=== PATIENT | male | born 1995 | race Caucasian/White ===

== ENCOUNTER 2021-11-12 21:00 | Emergency (ER) | payer OTHER, SELFPAY ==
--- NOTE | ~2021-11-12 | XR_ITS ---
EXAM: XR ankle RT min 3V DATE: 11/12/2021 21:18 HISTORY: PAIN S/P TWISTING IT ON STEP, LATERAL SWELLING . COMPARISON: None available. FINDINGS: Normal mineralization. No fracture or dislocation. No lytic or blastic lesion. Joint space s are maintained. No erosion or periosteal change. Lateral soft tissue swelling. IMPRESSION: No acute osseous finding in the right ankle. Reviewed, dictated and finalized at location K.
[2021-11-12 21:04] VITALS: BP 128/71; PULSE 77; RESP 16; TEMP 36.2; O2SAT 100
--- NOTE | 2021-11-12 21:29 | ED.LOWEXIN ---
HPI - Extremity Injury (Lower) General Chief Complaint: Extremity Injury, Lower Stated Complaint: Right ankle pain Time Seen by Provider: 11/12/21 21:09 History of Present Illness HPI Narrative: Patient is a 26-year-old male who presents ER with pain to the right ankle. Was walking into his garage going down a step when he twisted his ankle. [place] a pop. Has swelling. Has pain with ambulating. No numbness or tingling. Able to plantarflex and dorsiflex without issue. No other injuries. Related Data Allergies Allergy/AdvReac Type Severity Reaction Status Date / Time No Known Allergies Allergy Verified 11/12/21 21:06 Review of Systems Musculoskeletal: Musculoskeletal: Reports arthralgias, Reports joint swelling and Denies muscle cramps Neurologic: Denies syncope, Denies focal weakness and Denies numbness PMFSH Past Medical History Medical History (Updated 11/12/21 @ 21:33 by Yoel Bocanegra MD) Healthy adult male Surgical History Surgical History (Updated 11/12/21 @ 21:31 by Yoel Bocanegra MD) History of thumb surgery Social History Social History (Updated 11/12/21 @ 21:31 by Yoel Bocanegra MD) Smoking status: Never smoker Exam Narrative: GENERAL: Well-appearing, well-nourished, and in no acute distress. HEAD: Normocephalic, atraumatic. HEART: Regular rate and rhythm. Normal peripheral pulses. EXTREMITIES: Right ankle exam with swelling over the lateral malleolus and tenderness over the lateral malleolus with normal range of motion and strength. Dorsalis pedis and posterior tibial pulses intact. Normal sensation. SKIN: Warm, dry, no rash. NEURO: No focal deficits. Alert and oriented x3. PSYCH: Normal mood and affect. Course Course Emergency Course: Patient has a stirrup splint that he can wear at home. Will provide crutches. Rest, ice, compression, elevation as well as anti-inflammatories for home. Vital Signs Vital signs: Vital Signs Temperature 97.1 F L 11/12/21 21:04 Pulse Rate 77 11/12/21 21:04 Respiratory Rate 16 11/12/21 21:04 Blood Pressure 128/71 11/12/21 21:04 Pulse Oximetry 100 11/12/21 21:04 Temperature 97.1 F L 11/12/21 21:04 Pulse Rate 77 11/12/21 21:04 Respiratory Rate 16 11/12/21 21:04 Blood Pressure 128/71 11/12/21 21:04 Pulse Oximetry 100 11/12/21 21:04 MDM - Extremity Injury (Lower) Imaging Data Radiologist's impression: ITS Impressions Ankle X-Ray 11/12/21 21:26 IMPRESSION: No acute osseous finding in the right ankle. Discharge Plan Discharge Clinical Impression: Ankle sprain Patient Disposition: Home, Self-Care Condition: Stable Instructions: Ankle Sprain (ED), Crutch Instructions (ED) Additional Instructions: Return the ER if you suffer new injury, you have chest pain or shortness of breath, you cannot keep down food or water, you have additional concerns. Prescriptions: New ibuprofen 600 mg tablet 600 mg PO TID Qty: 14 0RF Follow-up/Referrals: PHYSICIAN NOT ON STAFF,NONSTAFF [Primary Care Provider] - 1 Week
== END 2021-11-12 21:54 | disposition home or self-care (01) ==
PROVIDERS: Emergency Provider Emergency Medicine
DX: S93.401A Sprain of unspecified ligament of right ankle, initial encounter (principal); X50.9XXA Other and unspecified overexertion or strenuous movements or postures, initial encounter
CPT/HCPCS: 73610; 99283

== ENCOUNTER 2024-11-08 17:50 | Emergency (ER) | payer OTHER, SELFPAY ==
--- NOTE | ~2024-11-08 | XR_ITS ---
EXAM: XR finger 1st LT min 2V DATE: 11/08/2024 20:09 HISTORY: Laceration, Tip of thumb . COMPARISON: None available. FINDINGS: Normal mineralization. No fracture or dislocation. No lytic or blastic lesion. Joint space s are maintained. No erosion or periosteal change. Soft tissues within normal limits. IMPRESSION: No acute osseous finding in the left thumb. No radiopaque foreign body. Reviewed, dictated and finalized at location K. IMPRESSION: No acute osseous finding in the left thumb. No radiopaque foreign b amber.
--- OUTSIDE RECORDS SUMMARY | 2024-11-08 17:52 | XMS_ITS | Encounter Summary ---
Author Organization [facility] Address [address] [place] [address] Phone Care Team Providers Care Meat Selector Name Role Phone No, Physician Primary Care Provider [phone] Myla Gaytan NP Primary Care Provider Reason for Visit * Reason Onset Date Comments Insurance Referrals 03/25/2019 SPOKE W/ W/C FORENSICS TEAM DIRECTOR WHO STATED SHE COULD ONLY GIVE VERBAL AND TO FAX OVER RX. I FAXED RX AND WAITING ON W/C AUTH IN WRITING. Encounter Details Date Type Department Care Team (Late st Contact Info) Description 03/25/2019 Telephone [facility] Occupational Therapy [address] [place] [address] Medina Michaels Insurance Referrals (SPOKE W/ W/C FORENSICS TEAM DIRECTOR WHO STATED SHE COULD ONLY GIVE VERBAL AND TO FAX OVER RX. I FAXED RX AND WAITING ON W/C AUTH IN WRITING.) Social History Tobacco Use Types Packs/Day Years Used Date Smoking Tobacco: Never Smokeless Tobacco: Never Alcohol Use Standard Drinks/Week Comments Yes 0 (1 standard drink = 0.6 oz pur e alcohol) rare Sex and Gender Information Value Date Recorded Sex Assigned at Not on file Legal Sex Male 8:34 AM INFANT CAREGIVER Gender Identity Male 05/27/2024 1:59 PM INFANT CAREGIVER Sexual Orientation Straight 05/27/2024 1: 59 PM INFANT CAREGIVER documented as of this encounter Plan of Treatment Not on file documented as of this encounter Visit Diagnoses Not on filedocumented in this encounter Care Teams Meat Selector Relationship Specialty Start Date End Date No, Physician PCP - General 02/07/19 01/18/24 Myla Gaytan NP [address] [address] PCP - General Family Medicine 01/19/24 documented as of this encounter
--- OUTSIDE RECORDS SUMMARY | 2024-11-08 17:52 | XMS_ITS | Encounter Summary ---
Author Organization [facility] Address [address] [place] [address] Phone Care Team Providers Care Lip Of Shank Cutter Name Role Phone No, Physician Primary Care Provider [phone] Myla Gaytan NP Primary Care Provider [phone] Reason for Visit * Reason Onset Date Comments Insurance Referrals 03/22/2019 LVM FOR W/C SUPERVISOR ENGRAVING TO EMAIL/FAX AUTH FOR PATIENT UPCOMING VST. Encounter Details Date Type Department Care Team (Late st Contact Info) Description 03/22/2019 Telephone [facility] Occupational Therapy [id number] [place] [address] 1[address] [place] [address] Medina Michaels Insurance Referrals (LVM FOR W/C SUPERVISOR ENGRAVING TO EMAIL/FAX AUTH FOR PATIENT UPCOMING VST.) Social History Tobacco Use Types Packs/Day Years Used Date Smoking Tobacco: Never Smokeless Tobacco: Never Alcohol Use Standard Drinks/Week Comments Yes 0 (1 standard drink = 0.6 oz pur e alcohol) rare Sex and Gender Information Value Date Recorded Sex Assigned at Not on file Legal Sex Male 8:34 AM PATIENT SUPPORT ASSISTANT Gender Identity Male 05/27/2024 1:59 PM PATIENT SUPPORT ASSISTANT Sexual Orientation Straight 05/27/2024 1: 59 PM PATIENT SUPPORT ASSISTANT documented as of this encounter Plan of Treatment Not on file documented as of this encounter Visit Diagnoses Not on filedocumented in this encounter Care Teams Lip Of Shank Cutter Relationship Specialty Start Date End Date No, Physician PCP - General 02/07/19 01/18/24 Myla Gaytan NP [address] [facility] [address] [place] [address] PCP - General Family Medicine 01/19/24 documented as of this encounter
--- OUTSIDE RECORDS SUMMARY | 2024-11-08 17:52 | XMS_ITS | Clinical Summary ---
Author Organization [facility] Address [address] [place] [address] Care Team Providers Care Refractive Surgeon Name Role Phone Myla Gaytan NP Primary Care Provider [phone] Allergies No known active allergies Medications No known medications Active Problems Problem Noted Date Diagnosed Date Closed displaced fracture of proximal phalanx of right thumb 02/07/2019 Abnormal glucose level 03/22/2013 Abnormal weight gain 03/22/2013 Closed fracture of distal end of radius 07/24/19 10 Encounters Date Type Department Care Team Description 08/14/2024 Results Follow-Up [facility] Primary Care at [address] [address] Heriberto Rg MD HSV 2 IgG Antibody Blood, HSV 1 IgG Antibody Blood, N. gonorrhoeae/C. trachomatis Amplification Urine, Additional followed-up results: 2 08/11/2024 3:53 PM CDT - 08/11/2024 11:59 PM CDT Hospital Encounter [address] [address] Screen for STD (sexually transmitted disease) Discharge Disposition: Discharge to home or self care 08/11/2024 1:45 PM CDT Lab [facility] Outpatient Lab at [address] [address] Screen for STD (sexually transmitted disease) (Primary Dx) 08/11/2024 1:15 PM CDT Office Visit [facility] Primary Care at [address] [address] Heriberto Rg MD Screen for STD (sexually transmitted disease) (Primary Dx) from Last 3 Months Surgical History Surgery Date Site/Laterality Comments WISDOM TOOTH EXTRACTION THUMB SURGERY Left Medical History Medical History Date Comments ADHD (attention deficit hyperactivity disorder) Family History Medical History Relation Name Comments Breast cancer Father's Sister Diabetes Maternal Grandfather Family history of diabetes mellitus - (Added by TW Conv) Diabetes Maternal Grandmother Family history of diabetes mellitus - (Added by TW Conv) Obesity Mother Family history of obesity - (Added by TW Conv) Relation Name Status Comments Father's Sister Maternal Grandfather Maternal Grandmother Mother Social History Tobacco Use Types Packs/Day Years Used Date Smoking Tobacco: Never Smokeless Tobacco: Never Alcohol Use Standard Drinks/Week Comments Yes 0 (1 standard drink = 0.6 oz pur e alcohol) rare PHQ-2 Answer Date Recorded PHQ-2 Total Score (If total score is 3 or more points, staff should administer the PHQ-9) 0 07/11/2024 Sex and Gender Information Value Date Recorded Sex Assigned at Not on file Legal Sex Male 8:34 AM ORACLE ENGINEER Gender Identity Male 05/27/2024 1:59 PM ORACLE ENGINEER Sexual Orientation Straight 05/27/2024 1: 59 PM ORACLE ENGINEER Obstetrics History Last Filed Vital Signs Vital Sign Reading Time Taken Comments Blood Pressure 110/70 08/11/2024 1:21 PM CDT Pulse 73 08/11/2024 1:21 PM CDT Temperature 36.1 C (96.9 F) 08/11/2024 1:21 PM CDT Respiratory Rate 16 08/11/2024 1:21 PM CDT Oxygen Saturation 98% 08/11/2024 1:21 PM CDT Inhaled Oxygen Concentration - - Weight 124.3 kg (274 lb) 08/11/2024 1:21 PM CDT Height 182.9 cm (6') 08/11/2024 1:21 PM CDT Body Mass Index 37.16 08/11/2024 1:21 PM CDT Plan of Treatment Health Maintenance Due Date Last Done Comments DTaP/Tdap/Td Vaccine (1 - Tdap) 2008 Hepatitis B Screening 2015 Covid-19 Vaccine ( - 2023-2 5 season) 2023 08/03/2020, 07/13/2020 HPV Vaccines (1 - 3-dose SCD M series) 2024 Influenza Vaccine (#1) 2024 Regular Well Visit/Exam 18-64 01/18/2025 01/19/2024 Depression Screening 07/11/2025 07/11/2024, 01/19/2024 Varicella Vaccines (1 of 2 - 13+ 2-dose series) 08/15/2025 Postponed from 04/10 (Patient declined, but will receive in the future) Hepatitis C Screening Completed 01/21/2024 Pneumococcal vaccine <65 Aged Out No longer eligible based on patient's age to complete this topic Medical Devices Implanted Type Area American Studies Professor Device Identifier Shelf Expiration Date Model / Serial / Lot [employer] [id number] Jeferson .045in 9in [place] Both Ends Orthopedic Wire - S00 - [id number] Implanted:Qty: 2 on 02/16/2019 by Shane Elizabeth MD at [facility] Wire Left: Thumb [employer] [id number] / Explanted Type Area American Studies Professor Device Identifier Shelf Expiration Date Model / Serial / Lot [employer] [id number] Jeferson .035in 9in [place] Both Ends Orthopedic Wire - S00 - [id number] Implanted:Qty: 1 Explanted:Qty: 1 on 02/16/2019 at [facility] Wire Left: Thumb [employer] [id number] / Description:Used for provisi onal fixation Procedures Procedure Name Priority Date/Time Associated Diagnosis Comments RPR Routine 08/11/2024 3:53 PM CDT Screen for STD (sexually transmitted disease) HIV 1/2 ANTIBODY PLUS P24 ANTIGEN Routine 08/11/2024 3:53 PM CDT Screen for STD (sexually transmitted disease) N. GONORRHOEAE/C. TRACHOMATIS AMPLIFICATION Routine 08/11/2024 3:53 PM CDT Screen for STD (sexually transmitted disease) HSV 1 ANTIBODY, IGG Routine 08/11/2024 3 :53 PM CDT Screen for STD (sexually transmitted disease) HSV 2 ANTIBODY, IGG Routine 08/11/2024 3 :53 PM CDT Screen for STD (sexually transmitted disease) HEPATITIS C ANTIBODY Routine 01/21/2024 4:00 PM CDT Encounter for hepatitis C screening test for low risk patient from Last 3 Months or Most Recently Relevant to Health Maintenance Results * N. gonorrhoeae/C. trachomatis Amplification Urine (08/11/2024 3:53 PM CDT) C. trachomatis Not Detected [facility] Comment:Testing performed by : [facility], [address] [place] [address]., [id number] N. gonorrhoeae Not Detected [facility] Comment: Interpretive Data This assay detects Chlamydia trachomatis and Neisseria gonorrhoeae by nucleic acid amplification testing (NAAT). This assay has been cleared by the [place] Food and Drug administration. The performance characteristics of this test have been verified by the [facility] Molecular Infectious Disease laboratory. The performance characteristics of this test have not been evaluated in individuals less than 14 years of age. Current Interpretive Data was last revised on 2023. Testing performed by: [facility], [address] [place] [address]., [id number] Urine (None) 08/11/2024 3:53 PM CDT 08/12/2024 10:32 AM CDT us Heriberto Rg MD LAB MICROBIOLOGY - GENERAL ORDERABLES Final Result [facility] [id number] Department [place] [address] [facility] * HIV 1/2 Antibody plus p24 Antigen Blood (08/11/2024 3:53 PM CDT) HIV 1/2 ab + p24 ag Nonreactive Nonreactive Comment: Nonreactive for HIV-1 antigen and HIV-1/HIV-2 antibodies. No laboratory evidence of HIV infection. If acute HIV infection is suspected, consider testing for HIV-1 RNA. Blood 08/11/2024 3:53 PM CDT 08/11/2024 8:46 PM CDT Heriberto Rg MD LAB MICROBIOLOGY - GENERAL ORDERABLES Final Result Performing Organization Address [facility] Co de Phone Number YASMIN [address] [place] [address] * HSV 2 IgG Antibody Blood (08/11/2024 3:53 PM CDT) HSV 2 IgG Nonreactive Nonreactive Comment: Interpretive Data 1. Nonreactive: No detectable IgG antibody to HSV-2. 2. Equivocal: Presence or absence of detectable antibodies to HSV-2 cannot be determined and the test should be repeated. 3. Reactive: Indicates presence of detectable IgG antibody to HSV-2. Current interpretive data was last revised on 2022. Testing performed by: [facility], [address] [place] [address]., [id number] Blood 08/11/2024 3:53 PM CDT 08/12/2024 10:10 AM CDT Heriberto Rg MD LAB MICROBIOLOGY - GENERAL ORDERABLES Final Result Performing Organization Address [facility] de Phone Number [facility] [address] [address] [facility] [place] [address] * HSV 1 IgG Antibody Blood (08/11/2024 3:53 PM CDT) HSV 1 IgG Nonreactive Nonreactive Comment: Interpretive Data 1. Nonreactive: No detectable IgG antibody to HSV-1. 2. Equivocal: Presence or absence of detectable antibodies to HSV-1 cannot be determined and the test should be repeated. 3. Reactive: Indicates presence of detectable IgG antibody to HSV-1. Current interpretive data was last revised on 2016. Testing performed by: [facility], [address] [place] [address], [place]., [address] Blood 08/11/2024 3:53 PM CDT 08/12/2024 10:10 AM CDT Heriberot Rg MD LAB MICROBIOLOGY - GENERAL ORDERABLES Final Result Performing Organization Address [facility] Co de Phone Number [facility] WISDOM [address] [place] [address] * RPR Blood (08/11/2024 3:53 PM CDT) RPR Nonreactive Nonreactive Blood 08/11/2024 3:53 PM CDT 08/11/2024 8:46 PM CDT Heriberto Rg MD LAB MICROBIOLOGY - GENERAL ORDERABLES Final Result Performing Organization Address [facility] de Phone Number [facility] WISDOM [id number] [place] [address] * Hepatitis C antibody Blood (01/21/2024 4:00 PM CDT) Hep C Ab Nonreactive Nonreactive Comment: Interpretive Data Nonreactive: Antibodies to HCV not detected. Does NOT exclude the possibility of recent exposure to HCV. Equivocal: Equivocal for HCV antibodies. Supplemental molecular testing will be automatically performed to determine infection status in accordance with current CDC screening recommendations. Reactive: Positive for HCV antibodies. This may represent current or past HCV infection. Supplemental molecular testing will be automatically performed to determine current infection status in accordance with current CDC screening recommendations. Interpretive data was last revised on 2019. Blood 01/21/2024 4:00 PM CDT 01/21/2024 8:28 PM CDT Result [facility] Myla Gaytan NP LAB MICROBIOLOGY - GENERAL ORDER ALIDA Final Result Performing Organization Address [facility] [place] Number [place] [address] [address] [place] [address] from Last 3 Months or Most Recently Relevant to Health Maintenance Insurance [facility] CHOICE PLUS [facility] HMO/PPO Address: [address] [address] [place] [address] [employer] Advance Directives For more information, please contact: [phone] * Full Code (Latest Code Status on File) Date Activated Date Inactivated Comments 02/16/2019 9:11 AM 02/16/2019 2:08 PM Care Teams Refractive Surgeon Relationship Specialty Start Date End Date Myla Gaytan NP [address] [facility] [address] [place] [address] PCP - General Family Medicine 01/19/24
--- OUTSIDE RECORDS SUMMARY | 2024-11-08 17:52 | XMS_ITS | Referral Summary ---
Author Organization [facility] Address [address] [place] [address] Care Team Providers Care Desktop Engineer Name Role Phone Myla Gaytan NP Primary Care Provider [phone] Encounters Date Type Department Care Team Description 08/14/2024 Results Follow-Up [facility] Primary Care at [address] [address] Heriberto Rg MD HSV 2 IgG Antibody Blood, HSV 1 IgG Antibody Blood, N. gonorrhoeae/C. trachomatis Amplification Urine, Additional followed-up results: 2 08/11/2024 3:53 PM CDT - 08/11/2024 11:59 PM CDT Hospital Encounter [facility] [id number] [place] [id number] Screen for STD (sexually transmitted disease) Discharge Disposition: Discharge to home or self care 08/11/2024 1:45 PM CDT Lab [facility] Outpatient Lab at [address] [address] Screen for STD (sexually transmitted disease) (Primary Dx) 08/11/2024 1:15 PM CDT Office Visit [facility] Primary Care at [address] [address] Heriberto Rg MD Screen for STD (sexually transmitted disease) (Primary Dx) from Last 3 Months Allergies No known active allergies Medications No known medications Active Problems Problem Noted Date Diagnosed Date Closed displaced fracture of proximal phalanx of right thumb 02/07/2019 Abnormal glucose level 03/22/2013 Abnormal weight gain 03/22/2013 Closed fracture of distal end of radius 07/24/19 10 Social History Tobacco Use Types Packs/Day Years [...] on file Legal Sex 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:34 AM VICE INVESTIGATOR Gender Identity Male 05/27/2024 1:59 PM VICE INVESTIGATOR Sexual Orientation Straight 05/27/2024 1: 59 PM VICE INVESTIGATOR Last Filed Vital Signs Vital Sign Reading [...] 08/11/2024 1:21 PM CDT Plan of Treatment Not on file Medical Devices Implanted Type Area Rotor Pilot Device Identifier Shelf Expiration Date Model / Serial / Lot [employer] [id number] Jeferson .045in 9in [place] Both Ends Orthopedic Wire - S00 - [id number] Implanted:Qty: 2 on 02/16/2019 by Shane Elizabeth MD at [facility] Wire Left: Thumb [employer] [id number] / Explanted Type Area Rotor Pilot Device Identifier Shelf Expiration Date Model / Serial / Lot [employer] [id number] Jeferson .035in 9in [place] Both Ends Orthopedic Wire - S00 - [id number] Implanted:Qty: 1 Explanted:Qty: 1 on 02/16/2019 at [facility] Wire Left: Thumb [employer] [id number] / Description:Used for provisi onal fixation Procedures [...] trachomatis Amplification Urine (08/11/2024 3:53 PM CDT) Pathologist [facility] C. trachomatis Not Detected [facility] Comment:Testing performed by : [facility], [address] [place]., [address] N. gonorrhoeae Not Detected Y[facility]MIN WISDOM Comment: Interpretive Data This assay detects Chlamydia trachomatis and Neisseria gonorrhoeae by nucleic acid amplification testing (NAAT). This assay has been cleared by the [place] Food and Drug administration. The performance characteristics of this test have been verified by the [facility] Molecular Infectious Disease laboratory. The performance characteristics of this test have not been evaluated in individuals less than 14 years of age. Current Interpretive Data was last revised on 2023. Testing performed by: [facility], [address] [place]., [address] Urine (None) 08/11/2024 3:53 PM CDT 08/12/2024 10:32 AM CDT Result [facility] Heriberto Rg MD LAB MICROBIOLOGY - GENERAL ORDERABLES Final Result Performing Organization Address [facility] Co de Phone Number [facility] [address] [place] [place] [address] [facility] * HIV 1/2 Antibody plus p24 Antigen Blood (08/11/2024 3:53 PM CDT) HIV 1/2 ab + p24 ag Nonreactive Nonreactive Comment: Nonreactive for HIV-1 antigen and HIV-1/HIV-2 antibodies. No laboratory evidence of HIV infection. If acute HIV infection is suspected, consider testing for HIV-1 RNA. Blood 08/11/2024 3:53 PM CDT 08/11/2024 8:46 PM CDT Result [facility] Heriberto Rg MD LAB MICROBIOLOGY - GENERAL ORDERABLES Final Result Performing Organization Address [facility] Co de Phone Number [facility] [address] [place] [address] * HSV 2 IgG Antibody Blood (08/11/2024 [...] last revised on 2022. Testing performed by: [facility], [address] [facility] [address] Blood 08/11/2024 3:53 PM CDT 08/12/2024 10:10 AM CDT Result [facility] Heriberto Rg MD LAB MICROBIOLOGY - GENERAL ORDERABLES Final Result Performing Organization Address [facility] Co de Phone Number YASMIN WISDOM [address] [address] [place] [address] * HSV 1 IgG Antibody Blood (08/11/2024 [...] last revised on 2016. Testing performed by: [facility], [address] [place] [address]., [address] Blood 08/11/2024 3:53 PM CDT 08/12/2024 10:10 AM CDT Heriberto Rg MD LAB MICROBIOLOGY - GENERAL ORDERABLES Final Result Performing Organization Address [facility] Co de Phone Number YASMIN WISDOM [address] [address] [place] [address] * RPR Blood (08/11/2024 3:53 PM CDT) Pathologist [facility] RPR Nonreactive Nonreactive Blood 08/11/2024 3:53 PM CDT 08/11/2024 8:46 PM CDT Heriberto Rg MD LAB MICROBIOLOGY - GENERAL ORDERABLES Final Result Performing Organization Address [facility] [place] [address] [address] [place] [address] * Hepatitis C antibody Blood (01/21/2024 4:00 [...] 4:00 PM CDT 01/21/2024 8:28 PM CDT us Myla Gaytan NP LAB MICROBIOLOGY - GENERAL ORDER ALIDA Final Result YASMIN [address] Department [place] [address] from Last 3 Months or Most Recently Relevant to Health Maintenance Insurance [facility] CHOICE PLUS [employer] Advance Directives For more information, please contact: [phone] * Full Code (Latest Code Status on File) Date Activated Date Inactivated Comments 02/16/2019 9:11 AM 02/16/2019 2:08 PM Care Teams Desktop Engineer Relationship Specialty Start Date End Date Myla Gaytan NP [address] [facility] [address] [place] [address] PCP - General Family Medicine 01/19/24
[2024-11-08 17:53] VITALS: BP 141/86; PULSE 81; RESP 18; TEMP 36.4; O2SAT 99
--- NOTE | 2024-11-08 18:16 | ED.WOUNDLAC ---
HPI - Wound/Laceration General Chief Complaint: Wound/Laceration <Isatu Hilario PA-C - Last Filed: 11/08/24 18:17> Stated Complaint: L thumb injury <YOGESH Hinson Last Filed: 11/08/24 18:17> Time Seen by Provider: 11/08/24 19:23 <Isatu Hilario PA-C - Last Filed: 11/08/24 18:17> Focused HPI: 29-year-old male presents emergency department for laceration to his left thumb that occurred prior to arrival. Patient states he was cutting an onion when he accidentally cut his finger. Bleeding controlled. Last Tdap unknown. GENERAL: Well-appearing, well-nourished, and in no acute distress. HEAD: Normocephalic, atraumatic. CHEST: Clear to auscultation. ?No respiratory distress. EXT: 0.5 cm laceration to the distal phalanx on the lateral nail fold on the ulnar side of the thumb, bleeding controlled. No nail involvement. No deep structures or foreign bodies visualized. Patient has full active and passive range of motion of finger. Cap refill less than 2. Sensation intact. HEART: Regular rate and rhythm.? NEURO: ?Alert and oriented x3. Patient screened in triage and initial orders placed.? ?Additional care and disposition to be based upon?diagnostic testing and treatment. <Isatu Hilario PA-C - Last Filed: 11/08/24 18:17> Related Data Allergies/Adverse Reactions: Allergies Allergy/AdvReac Type Severity Reaction Status Date / Time No Known Allergies Allergy Verified 11/08/24 17:56 <Isatu Hilario PA-C - Last Filed: 11/08/24 18:17> PMFSH Past Medical History Medical History: Medical History (Updated 11/08/24 @ 20:54 by Rell Mcqueen MD) Healthy adult male <Isatu Hilario PA-C - Last Filed: 11/08/24 18:17> Surgical History Surgical History: Surgical History (Updated 11/12/21 @ 21:31 by Yoel Bocanegra MD) History of thumb surgery <YOGESH Hinson Last Filed: 11/08/24 18:17> Social History Social History: Social History (Updated 11/12/21 @ 21:31 by Yoel Bocanegra MD) Smoking status: Never smoker <Isatu Hilario PA-C - Last Filed: 11/08/24 18:17> Exam Narrative: APPEARANCE: No apparent distress. Head: atraumatic. EYES: EOMI, NOSE: Atraumatic NECK: Trachea midline RESPIRATORY: No increased rate of breathing CARDIOVASCULAR: RRR, ABDOMINAL: Non-distended MUSCULOSKELETAl: No obvious deformities NEURO: Alert. Moving 4/4 extremities SKIN:: 1 cm U shaped laceration to the thumb, does not involve the nail bed no vomiting deeper structures PSYCHIATRIC: Normal affect <Rell Mcqueen MD - Last Filed: 11/08/24 20:54> Course Vital Signs Vital signs: Vital Signs Temperature 97.6 F 11/08/24 17:53 Pulse Rate 81 11/08/24 17:53 Respiratory Rate 18 11/08/24 17:53 Blood Pressure 141/86 H 11/08/24 17:53 Pulse Oximetry 99 11/08/24 17:53 Oxygen Delivery Room Air 11/08/24 17:53 Temperature 98.4 F 11/08/24 20:30 Pulse Rate 61 11/08/24 20:30 Respiratory Rate 18 11/08/24 20:30 Blood Pressure 112/64 11/08/24 20:30 Pulse Oximetry 98 11/08/24 20:30 Oxygen Delivery Room Air 11/08/24 17:53 <Isatu Hilario PA-C - Last Filed: 11/08/24 18:17> Vital Signs Temperature 97.6 F 11/08/24 17:53 Pulse Rate 81 11/08/24 17:53 Respiratory Rate 18 11/08/24 17:53 Blood Pressure 141/86 H 11/08/24 17:53 Pulse Oximetry 99 11/08/24 17:53 Oxygen Delivery Room Air 11/08/24 17:53 Temperature 98.4 F 11/08/24 20:30 Pulse Rate 61 11/08/24 20:30 Respiratory Rate 18 11/08/24 20:30 Blood Pressure 112/64 11/08/24 20:30 Pulse Oximetry 98 11/08/24 20:30 Oxygen Delivery Room Air 11/08/24 17:53 <Rell Mcqueen MD - Last Filed: 11/08/24 20:54> Procedures Laceration Laceration 1: Date: 11/08/24 <Rell Mcqueen MD - Last Filed: 11/08/24 20:54> Site: upper extremity <Rell Mcqueen MD - Last Filed: 11/08/24 20:54> Side (If applicable): left <Rell Mcqueen MD - Last Filed: 11/08/24 20:54> Size (cm): 1 <Rell Mcqueen MD - Last Filed: 11/08/24 20:54> Description: flap <Rell Mcqueen MD - Last Filed: 11/08/24 20:54> Depth: simple, single layer <Rell Mcqueen MD - Last Filed: 11/08/24 20:54> Local Anesthetic: bupivacaine 0.25% <Rell Mcqueen MD - Last Filed: 11/08/24 20:54> Amount of anesthesia used (mL): 5 <Rell Mcqueen MD - Last Filed: 11/08/24 20:54> Pre-repair: wound explored and irrigated extensively <Rell Mcqueen MD - Last Filed: 11/08/24 20:54> ====== Skin Level ======: Skin layer closed with: nylon <Rell Mcqueen MD - Last Filed: 11/08/24 20:54> Size (cm): 5-0 <Rell Mcqueen MD - Last Filed: 11/08/24 20:54> Number of sutures: 3 <Rell Mcqueen MD - Last Filed: 11/08/24 20:54> Technique: simple, interrupted <Rell Mcqueen MD - Last Filed: 11/08/24 20:54> ====== Subcutaneous Layer ======: ====== Muscle Layer ======: ====== Tendon Layer ======: MDM - Wound/Laceration MDM Narrative Medical decision making narrative: -Course: 29-year-old male seen for a finger laceration x-rays negative fracture or foreign body. Mode was repaired using sutures. He stepped sutures removed in 10 days. Given return precautions for infection. Tdap updated. <Rell Mcqueen MD - Last Filed: 11/08/24 20:54> ABG Data Attestation: I personally reviewed and interpreted this ABG as follows: <Rell Mcqueen MD - Last Filed: 11/08/24 20:54> Discharge Plan Discharge Clinical Impression: Laceration <Isatu Hilario PA-C - Last Filed: 11/08/24 18:17> Patient Disposition: Home <Isatu Hilario PA-C - Last Filed: 11/08/24 18:17> Condition: Stable <Isatu Hilario PA-C - Last Filed: 11/08/24 18:17> Instructions: Antibiotic Form, Care For Your Stitches (ED), Laceration (ED) <Isatu Hilario PA-C - Last Filed: 11/08/24 18:17> Additional Instructions: Please use [id number] Tylenol for pain control. Please follow-up your primary care physician for 10 days for suture removal. Return if develop signs of infection increased pain swelling or purulent discharge. <Isatu Hilario PA-C - Last Filed: 11/08/24 18:17> Patient Language: Bulgarian <Isatu Hilario PA-C - Last Filed: 11/08/24 18:17> Prescriptions: No Action ibuprofen 600 mg tablet 600 mg PO TID Qty: 14 0RF <Isatu Hilario PA-C - Last Filed: 11/08/24 18:17> Follow-up/Referrals: PHYSICIAN NOT ON STAFF,NONSTAFF [Primary Care Provider] - <Isatu Hilario PA-C - Last Filed: 11/08/24 18:17>
--- OUTSIDE RECORDS SUMMARY | 2024-11-08 19:36 | XMS_ITS | Encounter Summary ---
Author Organization 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 Encounter Details Date Type Department Care Team (Late st Contact Info) Description 03/22/2019 Telephone [facility] Occupational Therapy [id number] [place] [address] [address] [place] [address] Medina Michaels Insurance Referrals (LVM FOR W/C ASSOCIATE AUTOMATION ENGINEER TO EMAIL/FAX AUTH FOR PATIENT UPCOMING VST.) Social History Tobacco Use Types Packs/Day Years Used Date Smoking Tobacco: Never Smokeless Tobacco: Never Alcohol Use Standard Drinks/Week Comments Yes 0 (1 standard drink = 0.6 oz pur e alcohol) rare Sex and Gender Information Value Date Recorded Sex Assigned at Not on file Legal 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
--- OUTSIDE RECORDS SUMMARY | 2024-11-08 19:36 | XMS_ITS | Clinical Summary ---
Author Organization [facility] Address [address] [place] [address] Care Team Providers Care Study Director Name Role Phone Myla Gaytan NP Primary Care Provider [phone] Allergies No known active allergies Medications No known medications Active Problems Problem Noted Date Diagnosed Date Closed displaced fracture of proximal phalanx of right thumb 02/07/2019 Abnormal glucose level 03/22/2013 Abnormal weight gain 03/22/2013 Closed fracture of distal end of radius 07/24/19 10 Encounters Date Type Department Care Team Description 08/14/2024 Results Follow-Up [facility] Primary Care at [address] [address] Heriberto Rg MD HSV 2 IgG Antibody Blood, HSV 1 IgG Antibody Blood, N. gonorrhoeae/C. trachomatis Amplification Urine, Additional followed-up results: 2 08/11/2024 3:53 PM CDT - 08/11/2024 11:59 PM CDT Hospital Encounter [address] [address] Screen for STD (sexually transmitted disease) Discharge Disposition: Discharge to home or self care 08/11/2024 1:45 PM CDT Lab [facility] Outpatient Lab at [address] [address] Screen for STD (sexually transmitted disease) (Primary Dx) 08/11/2024 1:15 PM CDT Office Visit [facility] Primary Care at [address] [address] Heriberto Rg MD Screen for [...] on file 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 Gender Identity Male 05/27/2024 1:59 PM ARBORICULTURE INSTRUCTOR Sexual Orientation Straight 05/27/2024 1: 59 PM ARBORICULTURE INSTRUCTOR Obstetrics History Last Filed Vital Signs Vital [...] this topic Medical Devices Implanted Type Area Digital Editor Device Identifier Shelf Expiration Date Model / Serial / Lot [employer] [id number] Jeferson .045in 9in [place] Both Ends Orthopedic Wire - S00 - [id number] Implanted:Qty: 2 on 02/16/2019 by Shane Elizabeth MD at [facility] Wire Left: Thumb [employer] [id number] / Explanted Type Area Digital Editor Device Identifier Shelf Expiration Date Model / Serial / Lot [employer] [id number] Jeferson .035in 9in [place] Both Ends Orthopedic Wire - S00 - [id number] Implanted:Qty: 1 Explanted:Qty: 1 on 02/16/2019 at [facility] Wire Left: Thumb [employer] [id number] [...] 3:53 PM CDT) C. trachomatis Not Detected [facility] Comment:Testing performed by : [facility], [address] [place] [address]., [address] N. gonorrhoeae Not Detected [facility] Comment: Interpretive Data This assay detects Chlamydia trachomatis and Neisseria gonorrhoeae by nucleic acid amplification testing (NAAT). This assay has been cleared by the [place] Food and Drug administration. The performance characteristics of this test have been verified by the [facility] Molecular Infectious Disease laboratory. The performance characteristics of this test have not been evaluated in individuals less than 14 years of age. Current Interpretive Data was last revised on 2023. Testing performed by: [facility], [address] [place] [address]., [address] Urine (None) 08/11/2024 3:53 PM CDT 08/12/2024 10:32 AM CDT us Heriberto Rg MD LAB MICROBIOLOGY - GENERAL ORDERABLES Final Result YASMIN WISDOM [address] Department [place] [address] [facility] * HIV 1/2 Antibody plus p24 [...] GENERAL ORDERABLES Final Result Performing Organization Address [facility] Co de Phone Number YASMIN [address] [place] [address] * HSV 2 IgG Antibody Blood (08/11/2024 [...] last revised on 2022. Testing performed by: [facility], [address] [place] [address]., [address] Blood 08/11/2024 3:53 PM CDT 08/12/2024 10:10 AM CDT Heriberto Rg MD LAB MICROBIOLOGY - GENERAL ORDERABLES Final Result Performing Organization Address [facility] de Phone Number [facility] [address] [facility] [place] [address] * HSV 1 IgG Antibody Blood (08/11/2024 [...] last revised on 2016. Testing performed by: [facility], [address] [place] [address], [place]., [address] Blood 08/11/2024 3:53 PM CDT 08/12/2024 10:10 AM CDT Heriberto Rg MD LAB MICROBIOLOGY - GENERAL ORDERABLES Final Result Performing Organization Address [facility] Co de Phone Number YASMIN WISDOM [phone] [place] [address] * RPR Blood (08/11/2024 3:53 PM CDT) RPR Nonreactive Nonreactive Blood 08/11/2024 3:53 PM CDT 08/11/2024 8:46 PM CDT Heriberto Rg MD LAB MICROBIOLOGY - GENERAL ORDERABLES Final Result Performing Organization Address [facility] de Phone Number YASMIN WISDOM [address] [place] [address] * Hepatitis C antibody Blood (01/21/2024 4:00 [...] PM CDT 01/21/2024 8:28 PM CDT Result [facility] Myla Gaytan NP LAB MICROBIOLOGY - GENERAL ORDER ALIDA Final Result Performing Organization Address [facility] [place] Number [place] [address] [address] [place] [address] from Last 3 Months or Most Recently Relevant to Health Maintenance Insurance [facility]ICE PLUS [facility] H[facility]/PPO Address: [address] [address] [place] [address] [employer] Advance Directives For more information, please contact: [phone] * Full Code (Latest Code Status on File) Date Activated Date Inactivated Comments 02/16/2019 9:11 AM 02/16/2019 2:08 PM Care Teams Study Director Relationship Specialty Start Date End Date Myla Gaytan NP [address] [facility] [address] [place] [address] PCP - General Family Medicine 01/19/24
--- OUTSIDE RECORDS SUMMARY | 2024-11-08 19:36 | XMS_ITS | Referral Summary ---
Author Organization [facility] Address [address] [place] [address] Care Team Providers Care Senior Business Development Manager Name Role Phone Myla Gaytan NP Primary Care Provider [phone] Encounters Date Type Department Care Team Description 08/14/2024 Results Follow-Up [facility] Primary Care at [address] [address] Heriberto Rg MD HSV 2 IgG Antibody Blood, HSV 1 IgG Antibody Blood, N. gonorrhoeae/C. trachomatis Amplification Urine, Additional followed-up results: 2 08/11/2024 3:53 PM CDT - 08/11/2024 11:59 PM CDT Hospital Encounter [facility] [address] [place] [id number] Screen for STD (sexually transmitted disease) Discharge Disposition: Discharge to home or self care 08/11/2024 1:45 PM CDT Lab [facility] Outpatient Lab at [address] [address] Screen for STD (sexually transmitted disease) (Primary Dx) 08/11/2024 1:15 PM CDT Office Visit [facility] Primary Care at [address] [address] Heriberto Rg MD Screen for [...] on file 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 Gender Identity Male 05/27/2024 1:59 PM PRINTED CIRCUIT BOAR[employer] BEVELER Sexual Orientation Straight 05/27/2024 1: 59 PM PRINTED CIRCUIT BOARDS BEVELER Last Filed Vital Signs Vital Sign Reading [...] on file Medical Devices Implanted Type Area Guest Relations Agent Device Identifier Shelf Expiration Date Model / Serial / Lot [employer] [id number] Jeferson .045in 9in [place] [employer] Wire - S00 - [id number] Implanted:Qty: 2 on 02/16/2019 by Shane Elizabeth MD at [facility] Wire Left: Thumb [employer] [id number] / Explanted Type Area Guest Relations Agent Device Identifier Shelf Expiration Date Model / Serial / Lot [employer] [id number] Jeferson .035in 9in [place] [employer] Wire - S00 - [id number] Implanted:Qty: 1 Explanted:Qty: 1 on 02/16/2019 at [facility] Wire Left: Thumb [employer] [id number] / Description:Used for provisi onal fixation Procedures [...] Amplification Urine (08/11/2024 3:53 PM CDT) Pathologist [facility] C. trachomatis Not Detected [facility] Comment:Testing performed by : [facility], [address] [place]., [address] N. gonorrhoeae Not Detected [facility] WISDOM Comment: Interpretive Data This assay detects Chlamydia trachomatis and Neisseria gonorrhoeae by nucleic acid amplification testing (NAAT). This assay has been cleared by the [place] Food and Drug administration. The performance characteristics of this test have been verified by the [facility] Molecular Infectious Disease laboratory. The performance characteristics of this test have not been evaluated in individuals less than 14 years of age. Current Interpretive Data was last revised on 2023. Testing performed by: [facility], [address] [place]., [address] Urine (None) 08/11/2024 3:53 PM CDT 08/12/2024 10:32 AM CDT Result [facility] Heriberto Rg MD LAB MICROBIOLOGY - GENERAL ORDERABLES Final Result Performing Organization Address [facility] Co de Phone Number [facility] [address] [place] [address] [facility] * HIV 1/2 Antibody plus p24 Antigen Blood (08/11/2024 3:53 PM CDT) HIV 1/2 ab + p24 ag Nonreactive Nonreactive Comment: Nonreactive for HIV-1 antigen and HIV-1/HIV-2 antibodies. No laboratory evidence of HIV infection. If acute HIV infection is suspected, consider testing for HIV-1 RNA. Blood 08/11/2024 3:53 PM CDT 08/11/2024 8:46 PM CDT Result [facility] Heriberto Rg MD LAB MICROBIOLOGY - GENERAL ORDERABLES Final Result Performing Organization Address [facility] Co de Phone Number [facility] [address] [place] [address] * HSV 2 IgG Antibody Blood (08/11/2024 [...] last revised on 2022. Testing performed by: [facility], [address] [facility] [place] [address] Blood 08/11/2024 3:53 PM CDT 08/12/2024 10:10 AM CDT Result [facility] Heriberto Rg MD LAB MICROBIOLOGY - GENERAL ORDERABLES Final Result Performing Organization Address City/[facility] Co de Phone Number YASMIN WISDOM [address] [place] [address] * HSV 1 IgG Antibody Blood (08/11/2024 [...] last revised on 2016. Testing performed by: [facility], [address] [place] [address]., [address] Blood 08/11/2024 3:53 PM CDT 08/12/2024 10:10 AM CDT Heriberto Rg MD LAB MICROBIOLOGY - GENERAL ORDERABLES Final Result Performing Organization Address [facility] Co de Phone Number YASMIN WISDOM [address] [place] [address] * RPR Blood (08/11/2024 3:53 PM CDT) Pathologist [facility] RPR Nonreactive Nonreactive Blood 08/11/2024 3:53 PM CDT 08/11/2024 8:46 PM CDT Heriberto Rg MD LAB MICROBIOLOGY - GENERAL ORDERABLES Final Result Performing Organization Address [facility] [place] [address] [address] [place] [address] * Hepatitis C antibody Blood (01/21/2024 4:00 [...] - GENERAL ORDER ALIDA Final Result YASMIN [address] Department [place] [address] from Last 3 Months or Most Recently Relevant to Health Maintenance Insurance [facility] CHOICE PLUS [facility] HMO/PPO Address: [address] [address] [place] [address] [employer] Advance Directives For more information, please contact: [phone] * Full Code (Latest Code Status on File) Date Activated Date Inactivated Comments 02/16/2019 9:11 AM 02/16/2019 2:08 PM Care Teams Senior Business Development Manager Relationship Specialty Start Date End Date Myla Gaytan NP [address] [facility] [address] [place] [address] PCP - General Family Medicine 01/19/24
--- OUTSIDE RECORDS SUMMARY | 2024-11-08 19:36 | XMS_ITS | Encounter Summary ---
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 I FAXED RX AND WAITING ON W/C AUTH IN WRITING. 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
[2024-11-08] MEDS: TETANUS,DIPHTHERIA,AC PERTUSSIS ADULT (0.5 ML) BOOSTRIX IM (19:42)
[2024-11-08 20:30] VITALS: BP 112/64; PULSE 61; RESP 18; TEMP 36.9; O2SAT 98
[2024-11-08 21:10] VITALS: BP 138/81; PULSE 81; RESP 18; TEMP 36.4; O2SAT 99
== END 2024-11-08 21:11 | disposition home or self-care (01) ==
PROVIDERS: Emergency Provider Emergency Medicine
DX: S61.012A Laceration without foreign body of left thumb without damage to nail, initial encounter (principal); W26.0XXA Contact with knife, initial encounter; Z23 Encounter for immunization
CPT/HCPCS: 12001; 73140; 90471; 90715; 99283